=== PATIENT | female | born 1965 | race Caucasian/White ===

== ENCOUNTER 2020-05-05 21:09 | Observation (INO) | payer OTHER ==
[~2020-05-05] VITALS: Ht 175.3 cm; Wt 85.0 kg
[2020-05-05 21:30] VITALS: BP 188/114
[2020-05-05] MEDS ORDERED: CHILDREN'S ASPI81 M1 PO (21:50)
[2020-05-05] MEDS ORDERED: LISINOPRIL20 MG PO (21:50)
[2020-05-05 22:06] LABS: ABSOLUTE EOSINOPHILS 0.1 thou/uL (0.0-0.7); ABSOLUTE LYMPHOCYTES 1.8 thou/uL (0.8-5.3); ABSOLUTE MONOCYTES 0.8 thou/uL (0.0-1.2); ABSOLUTE NEUTROPHILS 3.9 thou/uL (1.6-8.1); BASOPHILS 0.4 %; EOSINOPHILS 1.7 %; HEMATOCRIT 42.1 % (37.0-47.0); HEMOGLOBIN 14.3 gm/dL (12.0-15.0); LYMPHOCYTES 27.7 %; MCH 28.8 pg (26.0-34.0); MCV 84.8 fL (80.0-100.0); MONOCYTES 11.5 %; MPV 8.4 fl. (7.2-11.1); NUCLEATED RBCS 0 /100WBC; PLATELET COUNT* 207 thou/uL (150-400); POLYS 58.7 %; RBC 4.97 mil/uL (4.20-5.00); RDW-CV 13.6 % (10.5-14.5); WBC 6.6 thou/uL (4.0-11.0)
[2020-05-05 22:14] LABS: URINE BILIRUBIN NEGATIVE (Negative); URINE BLOOD NEGATIVE (Negative); URINE CLARITY CLEAR; URINE COLOR YELLOW; URINE GLUCOSE-RANDOM NEGATIVE (Negative); URINE KETONES NEGATIVE (Negative); URINE LEUKOCYTES-REFLEX 1+ (Negative); URINE NITRITE-REFLEX NEGATIVE (Negative); URINE PROTEIN NEGATIVE (Negative); URINE SPECIFIC GRAVITY 1.025 (1.005-1.030); URINE UROBILINOGEN 0.2 E.U./dl (0.2-1.0)
[2020-05-05 22:16] LABS: CALCIUM 9.3 mg/dL (8.5-10.1); CREATININE 0.8 mg/dL (0.6-1.3); POTASSIUM 3.7 mmol/L (3.5-5.1)
[2020-05-05 22:18] LABS: INR 0.9; PROTIME 10.1 Seconds (9.20-11.50)
[2020-05-05 22:23] LABS: MUCUS None Seen strn/LPF (None Seen); SQUAMOUS 4-10 Moderate /LPF (0-3); URINE WBC-REFLEX 0-5 Rare /HPF (0-5)
[2020-05-05 22:24] LABS: AMORPHOUS URATES Few /LPF (None Seen); BACTERIA-REFLEX 1-9 Few /HPF (None Seen); CASTS None Seen /LPF (None Seen); URINE RBC None Seen /HPF (0-2)
[2020-05-05 22:26] LABS: ALBUMIN 3.8 g/dL (3.4-5.0); MAGNESIUM 2.3 mg/dL (1.8-2.4); TOTAL BILIRUBIN 0.3 mg/dL (<0.1-1.0); TOTAL PROTEIN 7.4 g/dL (6.4-8.2)
--- NOTE | 2020-05-05 23:00 | NUR ---
PT WITH [facility]IL[facility] REPORTED TO DR OTOOLE RECEIVED
[2020-05-06 03:00] VITALS: BP 152/98
[2020-05-06 03:15] VITALS: BP 172/99
[2020-05-06 08:00] VITALS: BP 151/100
--- NOTE | 2020-05-06 09:34 | EKG ---
[place] [address] ELECTROCARDIOGRAM REPORT Name: SEAN WEBSTER [address]#: [id number] Admission: 05/06/20 Attend Phys: Emmett Reardon Discharge: Date of : 63 Date of Service: 05/05/202140 Report #: [id number] THIS REPORT FOR: //name// [facility] ED Test Date: 2020-05-05 Test Time: 21:41:30 Pat Name: SEAN WEBSTER Department: Room: [facility] Gender: F Clinical Trial Assistant: : 1965 Requested By: Cheyenne Chaudhry Order Number: [id number] MD: Jb Parker Measurements Intervals [place] Rate: 79 P: 43 FL: 166 QRS: 50 QRSD: 109 T: 28 QT: 379 QTc: 435 Interpretive Statements Sinus rhythm No previous ECG available for comparison Electronically Signed On 05-06-2020 9:34:05 TICK INSPECTOR by Jb Parker [email or web address] <ELECTRONICALLY SIGNED> By: Jb Parker MD, [facility] 05/06/20 0934 40 40 Jb Parker MD, FAC /EPI
--- NOTE | 2020-05-06 12:00 | NUR ---
ALERT AND ORIENTED. STATED SHE WAS INDEPENDENT AND ACTIVE. NO USE OF DME. NO HX OF HH OR SNF. IS SELF EMPLOYED. PLAN IS HOME AT DISCHARGE WITHOUT NEEDS. STATED HER FAMILY IS VERY SUPPORTIVE.
--- NOTE | 2020-05-06 16:25 | 2DMMODE ---
[place] [id number] 2 D/M-MODE ECHOCARDIOGRAM Name: SEAN WEBSTER Room: [address] MPatric#: [id number] Admission: 05/06/20 Attend Phys: Emmett Reardon Discharge: Date of : 63 Date of Service: 05/06/20 1625 Report #: [id number] THIS REPORT FOR: cc: FAM - No family physician/PCP FAM - No family physician/PCP Jb Parker MD [facility] ~ APPROVED REPORT Study performed: 05/06/2020 14:03:26 EXAM: Comprehensive 2D, Doppler, and color-flow Echocardiogram Patient Location: In-Patient Room #: [id number] Status: routine BSA: 2.01 HR: 68 bpm BP: 151/100 mmHg Rhythm: NSR Other Information Study Quality: Good Indications Hypertension/HDD 2D Dimensions IVSd: 10.85 (7-11mm) LVOT Diam: 22.73 (18-24mm) LVDd: 48.11 mm PWd: 10.09 (7-11mm) Ascending Ao: 37.26 (22-36mm) LVDs: 29.32 (25-40mm) Aortic Root: 37.62 mm Volumes Left Atrial Volume (Systole) LA ESV Index: 17.40 mL/m2 Aortic Valve AoV Peak Jean Marie.: 1.43 m/s AO Peak Gr.: 8.18 mmHg LVOT Max P.79 mmHg AO Mean Gr.: 4.44 mmHg LVOT Mean P.31 mmHg LVOT Max V: 1.09 m/s AO V2 VTI: 26.87 cm LVOT Mean V: 0.70 m/s ZHANG (VTI): 3.23 cm2 LVOT V1 VTI: 21.36 [place] [id number] 2 D/M-MODE ECHOCARDIOGRAM Name: SEAN WEBSTER Room: [address]#: [id number] Admission: 05/06/20 Attend Phys: Emmett Reardon Discharge: Date of : 63 Date of Service: 05/06/20 1625 Report #: [id number] Mitral Valve E/A Ratio: 1.02 MV Decel. Time: 261.06 ms MV E Max Jean Marie.: 0.76 m/s MV PHT: 75.71 ms MVA (PHT): 2.91 cm2 TDI E/Lateral E': 6.33 E/Medial E': 8.44 Medial E' Jean Marie.: 0.09 m/s Lateral E' Jean Marie.: 0.12 m/s Pulmonary Valve PV Peak Jean Marie.: 0.94 m/s PV Peak Gr.: 3.52 mmHg Tricuspid Valve RAP Estimate: 5.00 mmHg TR Peak Gr.: 24.62 mmHg RVSP: 29.00 mmHg PA Pressure: 29.00 mmHg Left Ventricle The left ventricle is normal size. There is normal LV segmental wall motion. There is normal left ventricular wall thickness. Left ventricular systolic function is normal. The left ventricular ejection fraction is within the normal range. LVEF is 60-65%. The left ventricular diastolic function is normal. Right Ventricle The right ventricle is normal size. The right ventricular systolic function is normal. Atria The left atrium size is normal. The right atrium size is normal. Aortic Valve The aortic valve is normal in structure. No aortic regurgitation is present. There is no aortic valvular stenosis. Mitral Valve The mitral valve is normal in structure. There is no mitral valve regurgitation noted. No evidence of mitral valve stenosis. Tricuspid Valve The tricuspid valve is normal in structure. Trace tricuspid regurgitation. [place] [id number] 2 D/M-MODE ECHOCARDIOGRAM Name: SEAN WEBSTER Room: [address]#: [id number] Admission: 05/06/20 Attend Phys: Emmett Reardon Discharge: Date of : 63 Date of Service: 05/06/20 1625 Report #: [id number] Pulmonic Valve The pulmonary valve is normal in structure. There is no pulmonic valvular regurgitation. Great Vessels The aortic root is normal in size. IVC is normal in size and collapses >50% with inspiration. Pericardium There is no pericardial effusion. <Conclusion> The left ventricle is normal size. There is normal left ventricular wall thickness. Left ventricular systolic function is normal. The left ventricular ejection fraction is within the normal range. LVEF is 60-65%. The right ventricle is normal size. The left atrium size is normal. The aortic valve is normal in structure. The mitral valve is normal in structure. The tricuspid valve is normal in structure. IVC is normal in size and collapses >50% with inspiration. There is no pericardial effusion. There is normal LV segmental wall motion. <ELECTRONICALLY SIGNED> By: Jb Parker MD, FACC 05/06/20 1625 24 162 Jb Parker MD, FACC /INF
[2020-05-06 16:26] VITALS: BP 118/62
--- NOTE | 2020-05-06 19:41 | NUR ---
PATIENT RESTING IN BED. PATIENT IS UP AD BRANT IN ROOM. PATIENT HAS HAD COMPLAINTS OF RUQ/BACK PAIN AND NAUSEA THROUGHOUT DAY, TREATED PARTIALLY WITH MEDICATION. PATIENT HAS POOR APPETITE BUT IS TOLERATING FRUIT/CRACKERS. PATIENT AWAITING UROLOGY CONSULT. PATIENT DENIES ANY NEEDS AT THIS TIME. CALL LIGHT WITHIN REACH.
--- NOTE | 2020-05-06 19:43 | NUR ---
I HAVE REVIEWED AND AGREE WITH [facility].
[2020-05-06 21:39] VITALS: BP 105/54
[2020-05-06 21:43] LABS: AMP/METHAMP Negative (Negative); BARBITURATES Negative (Negative); BENZODIAZEPINES Negative (Negative); COCAINE Negative (Negative); METHADONE Negative (Negative); OPIATES Negative (Negative); PCP Negative (Negative); THC Negative (Negative)
[2020-05-07 03:12] VITALS: BP 111/71
[2020-05-07 05:24] LABS: ABSOLUTE LYMPHOCYTES 1.6 thou/uL (0.8-5.3); ABSOLUTE MONOCYTES 0.8 thou/uL (0.0-1.2); ABSOLUTE NEUTROPHILS 6.2 thou/uL (1.6-8.1); BASOPHILS 0.3 %; EOSINOPHILS 0.4 %; HEMATOCRIT 39.9 % (37.0-47.0); HEMOGLOBIN 13.1 gm/dL (12.0-15.0); LYMPHOCYTES 18.1 %; MCH 28.1 pg (26.0-34.0); MCHC 32.9 g/dL (28.0-37.0); MCV 85.3 fL (80.0-100.0); MONOCYTES 9.6 %; NUCLEATED RBCS 0 /100WBC; PLATELET COUNT* 203 thou/uL (150-400); POLYS 71.6 %; RBC 4.68 mil/uL (4.20-5.00); RDW-CV 13.5 % (10.5-14.5); WBC 8.7 thou/uL (4.0-11.0)
[2020-05-07 05:30] LABS: CALCIUM 8.4 mg/dL (8.5-10.1); POTASSIUM 4.2 mmol/L (3.5-5.1)
--- NOTE | 2020-05-07 07:36 | NUR ---
PT A&O, VSS ON ROOM AIR, PT UP AD BRANT, IV SALINE LOCKED, PAIN MEDS REQUESTED AND GIVEN ORDERED. PT SLEPT WELL. AT APPROX 0310 PT STATED "I GOT A LITTLE DIZZY WHEN I GOT UP TO GO TO THE BATHROOM" - VS CHECKED/STABLE AND BLOOD GLUCOSE 117. NO ADDITIONAL DISCOMFORT NOTIED REMAINDER OF SHIFT. REPORT GIVEN AND CARE TRANSFERED TO DAY SHIFT NURSE AT APPROX 0715.
[2020-05-07 08:10] VITALS: BP 145/73
[2020-05-07] MEDS ORDERED: NORVASC5 MG PO (11:41)
[2020-05-07] MEDS ORDERED: CEFUROXIME500 MG PO (11:41)
[2020-05-07 14:21] VITALS: BP 145/73
--- NOTE | 2020-05-07 16:01 | NUR ---
PT A&OX4 VSS. PT UP AD BRANT, GAIT STEADY. PT REMAINS ON ROOM AIR. PT DENIES DIZZINESS, N/V. IV TO L HAND DC'D PRIOR TO PT LEAVING UNIT. NO ACTIVE BLEEDING/SWELLING. PT DRESSED INDEPENDENTLY. PT STATES PO PAIN MEDICATION RELIEVED HEAD PAIN. PT STATES UNDERSTANDING OF DC INSTRUCTIONS AND RX INFORMATION PROVIDED. PT WAITS IN ROOM FOR RIDE WITH CALL LIGHT IN REACH.
== END 2020-05-07 16:30 | disposition home or self-care (01) ==
LOC: M.ERS 21:09 → M.3W 05-06 01:06 → M.TBA-ER 05-06 01:06 → M.3W 05-06 03:15
PROVIDERS: Emergency Medicine; Internal Medicine; ADMIT Internal Medicine; ATTEND Internal Medicine
DX: R10.9 Unspecified abdominal pain (principal); I10 Essential (primary) hypertension; R53.1 Weakness; N20.0 Calculus of kidney; Z79.82 Long term (current) use of aspirin; Z79.899 Other long term (current) drug therapy; Z20.822 Contact with and (suspected) exposure to COVID-19